=== PATIENT | female | born 1965 | race Caucasian/White ===

== ENCOUNTER 2023-11-23 09:53 | Emergency (ER) | payer OTHER ==
[~2023-11-23] VITALS: Ht 175.3 cm; Wt 103.9 kg
[2023-11-23 10:19] VITALS: BP 126/89; PULSE 73; RESP 16; TEMP 97.5; O2SAT 96
[2023-11-23] MEDS: ACETAMINOPHEN 325 MG TAB PO ONE (11:14)
[2023-11-23] MEDS ORDERED: [UNRECOGNIZED DRUG - CODE] PO (12:11)
[2023-11-23] MEDS ORDERED: AMOX-999 PO (12:11)
[2023-11-23 12:18] VITALS: BP 120/80; PULSE 84; RESP 12; TEMP 98; O2SAT 98
== END 2023-11-23 12:18 | disposition home or self-care (01) ==
LOC: MED 09:53
DX: S61.250A Open bite of right index finger without damage to nail, initial encounter (principal); Z79.899 Other long term (current) drug therapy; W55.01XA Bitten by cat, initial encounter; Y93.89 Activity, other specified; Y92.89 Other specified places as the place of occurrence of the external cause; Y99.8 Other external cause status
CPT/HCPCS: 73140; 90471; 90715; 99283

== ENCOUNTER 2023-12-20 14:28 | Inpatient (IN) | payer OTHER ==
[~2023-12-20] VITALS: Ht 175.3 cm; Wt 103.0 kg
[~2023-12-20 14:28] MED LIST: AMOX-999 PO; [UNRECOGNIZED DRUG - CODE] PO
[2023-12-20 14:36] VITALS: BP 111/67; PULSE 63; RESP 18; TEMP 98; O2SAT 97
[2023-12-20] MEDS ORDERED: cefTRIAXone 1,000 MG VIAL ONE (15:00)
[2023-12-20] MEDS: NACL 0.9% 1,000 ML IV SCH (15:25)
[2023-12-20] MEDS: cefTRIAXone 1,000 MG in DEXT 5% MINI-BAG PLUS 50 ML IV ONE (15:26)
[2023-12-20 15:45] LABS: BASOPHILS # (AUTO) 0.1 K/uL (0.00-0.22); EOSINOPHILS # (AUTO) 0.4 K/uL (0-0.4); EOSINOPHILS % (AUTO) 5.8 % (0.0-4.0); HEMATOCRIT 37.1 % (36-48); HEMOGLOBIN 12.6 g/dL (12.0-16.0); LYMPHOCYTES # (AUTO) 2.1 K/uL (2.5-16.5); LYMPHOCYTES % (AUTO) 30.5 % (20.5-51.1); MEAN CORPUSCULAR HEMOGLOBIN 29 pg (27-31); MEAN CORPUSCULAR HGB CONC 34 g/dL (33-37); MEAN CORPUSCULAR VOLUME 86.2 fL (80-94); MONOCYTES # (AUTO) 0.4 K/uL (0.8-1.0); MONOCYTES % (AUTO) 6.1 % (1.7-9.3); NEUTROPHILS # (AUTO) 3.9 K/uL (1.8-7.7); NEUTROPHILS % (AUTO) 56.6 % (42.2-75.2); PLATELET COUNT (AUTO) 285 K/uL (140-450); RED BLOOD CELL COUNT(AUTO) 4.31 MIL/uL (4.20-5.40); RED CELL DISTRIBUTION WIDTH 13.9 % (11.6-13.7); WHITE BLOOD COUNT (AUTO) 6.8 K/uL (4.8-10.8)
[2023-12-20 15:54] LABS: ANION GAP 10.6 (8-16); CARBON DIOXIDE 29.9 mmol/L (21-32); CREATININE 0.9 mg/dL (0.6-1.3); POTASSIUM 3.5 mmol/L (3.5-5.1)
[2023-12-20 16:03] LABS: LACTIC ACID 0.6 mmol/L (0.4-2.0)
[2023-12-20] MEDS ORDERED: ZOLPIDEM 5 MG TAB PO PRN (16:40)
[2023-12-20] MEDS ORDERED: ONDANSETRON 4 MG/2 ML VIAL IVP PRN (16:40)
[2023-12-20] MEDS ORDERED: ACETAMINOPHEN 325 MG TAB PO PRN (16:40)
[2023-12-20] MEDS ORDERED: HYDROcodone/APAP 5/325 MG 1 TAB TAB PO PRN (16:40)
[2023-12-20] MEDS ORDERED: AMPICILLIN/SULBACTAM 3 GM VIAL ONE (18:20)
[2023-12-20] MEDS: AMPICILLIN/SULBACTAM 3 GM in NACL 0.9% 100 ML IV SCH (18:34)
[2023-12-20] MEDS ORDERED: VANCOMYCIN PER PHARMACY MC PRN (19:25)
[2023-12-20 20:00] VITALS: BP 154/80; PULSE 69; RESP 18; TEMP 97.5; O2SAT 96
[2023-12-20] MEDS ORDERED: VANCOMYCIN 1,000 MG VIAL ONE (20:21)
[2023-12-20] MEDS ORDERED: VANCOMYCIN 500 MG VIAL ONE (20:24)
[2023-12-20] MEDS: VANCOMYCIN 1,500 MG in DEXTROSE 5% 500 ML IV SCH (20:33)
[2023-12-21 06:53] LABS: BASOPHILS % (AUTO) 0.8 % (0.0-2.0); EOSINOPHILS # (AUTO) 0.4 K/uL (0-0.4); EOSINOPHILS % (AUTO) 5.7 % (0.0-4.0); HEMATOCRIT 33.8 % (36-48); HEMOGLOBIN 11.6 g/dL (12.0-16.0); LYMPHOCYTES # (AUTO) 1.3 K/uL (2.5-16.5); LYMPHOCYTES % (AUTO) 20.5 % (20.5-51.1); MEAN CORPUSCULAR HEMOGLOBIN 30 pg (27-31); MEAN CORPUSCULAR HGB CONC 34 g/dL (33-37); MEAN CORPUSCULAR VOLUME 85.7 fL (80-94); MONOCYTES # (AUTO) 0.3 K/uL (0.8-1.0); MONOCYTES % (AUTO) 5.3 % (1.7-9.3); NEUTROPHILS # (AUTO) 4.3 K/uL (1.8-7.7); NEUTROPHILS % (AUTO) 67.7 % (42.2-75.2); PLATELET COUNT (AUTO) 222 K/uL (140-450); RED BLOOD CELL COUNT(AUTO) 3.94 MIL/uL (4.20-5.40); RED CELL DISTRIBUTION WIDTH 13.7 % (11.6-13.7); WHITE BLOOD COUNT (AUTO) 6.4 K/uL (4.8-10.8)
[2023-12-21 08:00] VITALS: BP 110/70; PULSE 68; RESP 19; TEMP 97; O2SAT 95
[2023-12-21 09:01] LABS: ANION GAP 11.8 (8-16); CALCIUM 8.5 mg/dL (8.5-10.1); CREATININE 0.9 mg/dL (0.6-1.3); POTASSIUM 3.8 mmol/L (3.5-5.1)
[2023-12-21] MEDS: NAPROXEN 500 MG TAB PO SCH (09:23)
[2023-12-21] MEDS: ENOXAPARIN 40 MG/0.4 ML SYR SUBQ SCH (09:25)
[2023-12-21] MEDS: VANCOMYCIN 1.25GM PREMIX 250 ML IV SCH (09:25)
[2023-12-21 16:00] VITALS: BP 106/54; PULSE 63; RESP 19; TEMP 97.9; O2SAT 97
[2023-12-21 20:00] VITALS: BP 108/77; PULSE 93; RESP 18; TEMP 97.8; O2SAT 95
[2023-12-21] MEDS: MEDS-TO-BEDS MC SCH (21:52)
[2023-12-22 08:00] VITALS: BP 109/75; PULSE 69; RESP 16; TEMP 97.9; O2SAT 97
[2023-12-22] MEDS ORDERED: SULF-59 PO (15:52)
[2023-12-22] MEDS ORDERED: AMOX1TAB8 PO (15:52)
[2023-12-22 16:00] VITALS: BP 113/78; PULSE 74; RESP 17; TEMP 98.2; O2SAT 96
== END 2023-12-22 16:30 | disposition left against medical advice (07) | DRG 344 ==
LOC: MED 14:28 → MTU 16:42
PROVIDERS: ADMIT Internal Medicine; ATTEND Internal Medicine
DX: M86.141 Other acute osteomyelitis, right hand (principal); L03.011 Cellulitis of right finger; M65.841 Other synovitis and tenosynovitis, right hand; Z53.21 Procedure and treatment not carried out due to patient leaving prior to being seen by health care provider; Z79.899 Other long term (current) drug therapy; W55.01XA Bitten by cat, initial encounter
CPT/HCPCS: 36415; 71045; 73140; 80048; 83605; 83880; 84484; 85025; 87040; 87081; 93005; 96361; 96365; 96375; 97116; 97163-GP; 99285; J0295; J0696; J1650; J3370; J3372

== ENCOUNTER 2024-01-02 20:47 | Inpatient (IN) | payer OTHER ==
[~2024-01-02] VITALS: Ht 175.3 cm; Wt 103.9 kg
[~2024-01-02 20:47] MED LIST changes: -AMOX-999 PO; +AMOX1TAB8 PO; +SULF-59 PO; -[UNRECOGNIZED DRUG - CODE] PO
[2024-01-02 21:07] VITALS: BP 114/69; PULSE 79; RESP 16; TEMP 98.3; O2SAT 98
[2024-01-02 23:24] LABS: BASOPHILS # (AUTO) 0.1 K/uL (0.00-0.22); BASOPHILS % (AUTO) 1.2 % (0.0-2.0); EOSINOPHILS # (AUTO) 0.3 K/uL (0-0.4); EOSINOPHILS % (AUTO) 4.1 % (0.0-4.0); HEMATOCRIT 38.5 % (36-48); HEMOGLOBIN 12.9 g/dL (12.0-16.0); LYMPHOCYTES # (AUTO) 2.5 K/uL (2.5-16.5); LYMPHOCYTES % (AUTO) 30.5 % (20.5-51.1); MEAN CORPUSCULAR HEMOGLOBIN 29 pg (27-31); MEAN CORPUSCULAR HGB CONC 34 g/dL (33-37); MEAN CORPUSCULAR VOLUME 86.2 fL (80-94); MONOCYTES # (AUTO) 0.5 K/uL (0.8-1.0); MONOCYTES % (AUTO) 6.7 % (1.7-9.3); NEUTROPHILS # (AUTO) 4.7 K/uL (1.8-7.7); NEUTROPHILS % (AUTO) 57.5 % (42.2-75.2); PLATELET COUNT (AUTO) 308 K/uL (140-450); RED BLOOD CELL COUNT(AUTO) 4.46 MIL/uL (4.20-5.40); WHITE BLOOD COUNT (AUTO) 8.2 K/uL (4.8-10.8)
[2024-01-02 23:33] LABS: ANION GAP 10.1 (8-16); CALCIUM 8.9 mg/dL (8.5-10.1); CARBON DIOXIDE 30.4 mmol/L (21-32); CREATININE 0.8 mg/dL (0.6-1.3); POTASSIUM 3.5 mmol/L (3.5-5.1)
[2024-01-02 23:39] LABS: ALBUMIN 3.6 g/dL (3.4-5.0); TOTAL BILIRUBIN 0.2 mg/dL (0.0-1.0)
[2024-01-03] MEDS ORDERED: ONDANSETRON 4 MG/2 ML VIAL IVP PRN (02:20)
[2024-01-03] MEDS ORDERED: MORPHINE SULFATE 2 MG/ML SYR IVP PRN (02:20)
[2024-01-03] MEDS ORDERED: ACETAMINOPHEN 325 MG TAB PO PRN (02:20)
[2024-01-03] MEDS: NACL 0.9% 1,000 ML IV SCH (02:36)
[2024-01-03 04:35] VITALS: PULSE 60; RESP 17; O2SAT 100
[2024-01-03] MEDS: AMPICILLIN/SULBACTAM 3 GM in NACL 0.9% 100 ML IV SCH (05:34)
[2024-01-03] MEDS: AMPICILLIN/SULBACTAM 3 GM VIAL ONE (05:39)
[2024-01-03 08:52] VITALS: BP 141/75; PULSE 63; RESP 18; TEMP 97.5; O2SAT 100
[2024-01-03 08:54] VITALS: TEMP 97.5
[2024-01-03 08:55] VITALS: PULSE 63; RESP 18; O2SAT 100
[2024-01-03 16:24] VITALS: BP 116/64; PULSE 64; RESP 18; TEMP 97.3; O2SAT 98
[2024-01-03] MEDS ORDERED: VANCOMYCIN PER PHARMACY MC PRN (17:40)
[2024-01-03] MEDS: VANCOMYCIN 1,000 MG in DEXTROSE 5% 250 ML IV SCH (18:18)
[2024-01-03 20:00] VITALS: PULSE 69; RESP 18; TEMP 96.4; O2SAT 100
[2024-01-03] MEDS: MEDS-TO-BEDS MC SCH (21:31)
[2024-01-04] VITALS: BP 117/71; PULSE 65; RESP 18; TEMP 97.6; O2SAT 99
[2024-01-04 05:30] LABS: BASOPHILS % (AUTO) 0.7 % (0.0-2.0); EOSINOPHILS # (AUTO) 0.2 K/uL (0-0.4); EOSINOPHILS % (AUTO) 3.8 % (0.0-4.0); HEMATOCRIT 34.3 % (36-48); HEMOGLOBIN 11.6 g/dL (12.0-16.0); LYMPHOCYTES # (AUTO) 1.1 K/uL (2.5-16.5); LYMPHOCYTES % (AUTO) 17.5 % (20.5-51.1); MEAN CORPUSCULAR HEMOGLOBIN 29 pg (27-31); MEAN CORPUSCULAR HGB CONC 34 g/dL (33-37); MEAN CORPUSCULAR VOLUME 85.7 fL (80-94); MONOCYTES # (AUTO) 0.2 K/uL (0.8-1.0); MONOCYTES % (AUTO) 3.9 % (1.7-9.3); NEUTROPHILS # (AUTO) 4.6 K/uL (1.8-7.7); NEUTROPHILS % (AUTO) 74.1 % (42.2-75.2); PLATELET COUNT (AUTO) 234 K/uL (140-450); RED CELL DISTRIBUTION WIDTH 14.3 % (11.6-13.7); WHITE BLOOD COUNT (AUTO) 6.3 K/uL (4.8-10.8)
[2024-01-04 05:58] LABS: ALBUMIN 2.9 g/dL (3.4-5.0); ANION GAP 9.4 (8-16); CALCIUM 8.6 mg/dL (8.5-10.1); CARBON DIOXIDE 29.2 mmol/L (21-32); CREATININE 0.7 mg/dL (0.6-1.3); MAGNESIUM 2.1 mg/dL (1.8-2.4); POTASSIUM 3.6 mmol/L (3.5-5.1); TOTAL BILIRUBIN 0.4 mg/dL (0.0-1.0); TOTAL PROTEIN, SERUM 6.6 g/dL (6.4-8.2)
[2024-01-04 08:00] VITALS: PULSE 72; RESP 18; TEMP 98.8; O2SAT 100
[2024-01-04 13:03] VITALS: BP 129/70; PULSE 72; RESP 18; TEMP 98.8; O2SAT 100
[2024-01-04 16:00] VITALS: BP 123/69; PULSE 69; RESP 18; TEMP 98.6; O2SAT 100
[2024-01-04] MEDS ORDERED: SULF-954 PO (16:26)
[2024-01-04] MEDS ORDERED: AMOX-1230 PO (16:26)
[2024-01-04] MEDS ORDERED: BIFI4CAP PO (16:26)
== END 2024-01-04 19:35 | disposition home or self-care (01) | DRG 344 ==
LOC: MED 20:47 → MMU 01-03 02:22
PROVIDERS: ADMIT Hospitalist; ATTEND Hospitalist
PROC: 02HV33Z Insertion of Infusion Device into Superior Vena Cava, Percutaneous Approach (ICD-10-PCS; principal; 2024-01-03)
PROC: B548ZZA Ultrasonography of Superior Vena Cava, Guidance (ICD-10-PCS; 2024-01-03)
DX: M86.8X4 Other osteomyelitis, hand (principal); Z79.899 Other long term (current) drug therapy; W55.01XA Bitten by cat, initial encounter; Y93.89 Activity, other specified; Y92.89 Other specified places as the place of occurrence of the external cause; Y99.8 Other external cause status
CPT/HCPCS: 36415; 71045; 80048; 80053; 80076; 80202; 83735; 85025; 87040; 87081; 99285; J0295; J3370; J7060; Q0092